=== PATIENT | male | born 1975 | race Caucasian/White ===

== ENCOUNTER 2023-05-17 01:29 | Outpatient (CLI) | payer MEDICAID, SELFPAY ==
[2023-05-17 12:22] LABS: HCT 43.6 % (40.0-50.0); HGB 14.7 g/dL (13.5-17.5); MCH 31.8 pg (27.0-33.0); MCHC 33.7 % (32.0-36.0); MCV 94 fL (80-95); MPV 11.4 fL (8.0-11.0); Platelet Count 232 10^3/uL (130-400); RBC 4.62 10^6/uL (4.36-5.78); RDW-SD 42.1 fL; WBC 7.58 10^3/uL (4.4-10.8)
[2023-05-17 12:34] LABS: Calculated LDL 144 mg/dL (<100); Cholesterol 220 mg/dL (<200); HDL Cholesterol 61 mg/dL (40-60); Triglyceride 79 mg/dL (<150)
== END 2023-05-17 01:30 | disposition home or self-care (01) ==
LOC: LOS 01:29
PROVIDERS: PCP Family Medicine; Visit Provider Family Medicine
DX: I10 Essential (primary) hypertension (principal)
CPT/HCPCS: 36415; 80061; 85027

== ENCOUNTER 2024-12-15 10:56 | Outpatient (REF) | payer BC, SELFPAY ==
[2024-12-15 14:56] LABS: Abs Immature Grans 0.02 10^3/uL (0.0-0.06); Absolute Basophil Count 0.06 10^3/uL (0.0-0.2); Absolute Eosinophil Count 0.06 10^3/uL (0.0-0.7); Absolute Lymphocyte Count 2.16 10^3/uL (1.2-3.4); Absolute Monocyte Count 0.77 10^3/uL (0.1-0.8); Absolute Neutrophil Count 3.82 10^3/uL (1.2-6.7); Basophils % 0.9 %; Eosinophils % 0.9 %; HCT 44.7 % (40.0-50.0); HGB 15.3 g/dL (13.5-17.5); Immature Grans % 0.3 %; Lymphocytes % 31.3 %; MCH 33.1 pg (27.0-33.0); MCHC 34.2 % (32.0-36.0); MCV 97 fL (80-95); MPV 11.1 fL (8.0-11.0); Monocytes % 11.2 %; Neutrophils % 55.4 %; Platelet Count 186 10^3/uL (130-400); RBC 4.62 10^6/uL (4.36-5.78); RDW 12.8 % (11.8-14.1); RDW-SD 44.9 fL; WBC 6.89 10^3/uL (4.4-10.8)
[2024-12-15 15:59] LABS: ALT 66 U/L (16-63); AST 47 U/L (15-37); Albumin 4.2 g/dL (3.4-5.0); Alkaline Phosphatase 61 U/L (46-116); Anion Gap 9.8 mmol/L (3-11); BUN 6 mg/dL (7-18); Bilirubin, Total 0.8 mg/dL (0.2-1.0); CO2 27.2 mmol/L (21.0-32.0); CREATININE 1.1 mg/dL (0.70-1.30); Calcium 9.2 mg/dL (8.5-10.1); Calculated LDL 162 mg/dL (<100); Chloride 103 mmol/L (98-107); Cholesterol 261 mg/dL (<200); Estimated GFR 82.81 (mL/min/1.73m2); Glucose 112 mg/dL (74-106); HDL Cholesterol 75 mg/dL (>or=40); Potassium 4.5 mmol/L (3.5-5.1); Sodium 140 mmol/L (136-145); Total Protein 7.7 g/dL (6.4-8.2); Triglyceride 121 mg/dL (<150)
== END 2024-12-15 10:57 | disposition home or self-care (01) ==
LOC: NCHCN 10:56
PROVIDERS: PCP Family Medicine; Visit Provider Family Medicine
DX: I10 Essential (primary) hypertension (principal); Z00.00 Encounter for general adult medical examination without abnormal findings
CPT/HCPCS: 80053; 80061; 85025